=== PATIENT | male | born 1950 | race Caucasian/White ===

== ENCOUNTER → 2024-01-24 16:23 | Outpatient (CLI) | payer MEDICARE, OTHER, SELFPAY ==
--- NOTE | 2024-01-24 16:27 | DI.US.S_ITS ---
PROCEDURE: US EXTREMITY NONVASC LOWER LT INDICATIONS: Strain of right Achilles tendon TECHNIQUE: Real-time scanning was performed of the left Achilles tendon , with image documentation. COMPARISON: None. FINDINGS: There is a 1.7 cm partial tear within the Achilles tendon, located approximately 1.6 cm from the tendon insertion upon the calcaneus. This encompasses approximately 1/3 of the tendon. IMPRESSION: Partial Achilles tendon tear. Dictated by: Walker Peralta M.D. on 01/26/2024 at 8:32 Approved by: Walker Peralta M.D. on 01/26/2024 at 8:33
== END ==
PROVIDERS: Referring Provider Emergency Medicine; Visit Provider Emergency Medicine
DX: S86.011A Strain of right Achilles tendon, initial encounter (principal)
CPT/HCPCS: 76882

== ENCOUNTER → 2025-01-09 12:04 | Outpatient (CLI) | payer MEDICARE, OTHER, SELFPAY ==
--- NOTE | 2025-01-09 12:06 | DI.US.S_ITS ---
PROCEDURE: US EXTREMITY NONVASC LOWER RT INDICATIONS: FOLLOW-UP PARTIAL RT ACHILLIES TENDON TEAR TECHNIQUE: Real-time scanning was performed of the right Achilles, with image documentation. COMPARISON: [facility], , EXTREMITY NONVASC LOWER LT, 01/24/2024, 17:11. FINDINGS AND IMPRESSION: The distal insertion of the Achilles appears intact. In the mid Achilles, there is a 4.2 x 0.8 x 2.5 cm worsened, heterogeneous masslike region within the tendon, that may represent scarring and edema due to tearing, which may be acute on chronic. An underlying soft tissue lesion is less common though could appear similar Consider clinical and imaging follow-up to ensure resolution. MRI could further evaluate. Dictated by: Hussein Madrigal M.D. on 01/10/2025 at 14:02 Approved by: Hussein Madrigal M.D. on 01/10/2025 at 14:07
== END ==
PROVIDERS: PCP Nurse Practitioner Family; Referring Provider Nurse Practitioner Family; Visit Provider Nurse Practitioner Family
DX: S86.012A Strain of left Achilles tendon, initial encounter (principal); X58.XXXA Exposure to other specified factors, initial encounter
CPT/HCPCS: 76882